=== PATIENT | male | born 1995 | race Hispanic/Latino ===

== ENCOUNTER 2023-02-28 22:47 | Emergency (ER) | payer SELFPAY ==
[2023-02-28 23:52] LABS: SARS-CoV-2 NAA Rapid Test Not Detected (NotDetected)
[2023-03-01] MEDS ORDERED: Dexamethasone 4 MG TAB ONE (01:43)
== END 2023-03-01 04:00 | disposition home or self-care (01) ==
LOC: CSHERS 22:47
DX: J30.9 Allergic rhinitis, unspecified (principal); Z20.822 Contact with and (suspected) exposure to COVID-19
CPT/HCPCS: 99284; J8540; U0002